=== PATIENT | female | born 1995 | race African-American/Black ===

== ENCOUNTER 2024-12-21 03:38 | Emergency (ER) | payer OTHER, MEDICAID ==
[~2024-12-21] VITALS: Ht 170.2 cm; Wt 65.0 kg
[2024-12-21 03:53] VITALS: TEMP 36.8
[2024-12-21] MEDS: PREDNISONE 20MG TABLET PO STA (04:25)
[2024-12-21 04:34] VITALS: PULSE 77; RESP 20; O2SAT 99
[2024-12-21] MEDS: ALBUTEROL (0.083%) 2.5MG/3ML NEB HHN STA (04:34)
[2024-12-21] MEDS: IPRATROPIUM BROMIDE (0.02%) 0.5MG/2.5ML NEB HHN STA (04:34)
[2024-12-21] MEDS: LORAZEPAM 1MG TABLET PO ONE (05:10)
[2024-12-21] MEDS ORDERED: P20 MT (05:44)
[2024-12-21 05:54] VITALS: BP 112/62; PULSE 109; RESP 29; O2SAT 95
== END 2024-12-21 05:58 | disposition home or self-care (01) ==
LOC: ER 03:38
DX: J45.901 Unspecified asthma with (acute) exacerbation (principal); Z86.718 Personal history of other venous thrombosis and embolism
CPT/HCPCS: 71045; 94640; 93005; 99283; J7512; Z7610 ×5; 94070; A4606